=== PATIENT | male | born 1960 | race Caucasian/White ===

== ENCOUNTER 2019-10-15 08:51 | Inpatient (IN) ==
--- NOTE | 2019-09-28 10:19 | PAT Medication Instructions ---
Medication Instructions Date of Service September 28, 2019 Home Medications acetaminophen [Tylenol Extra Strength] 500 mg PO UD PRN finasteride 5 mg PO QAM metoprolol succinate 50 mg PO QAM Take morning of surgery With a small sip of water, OTHERWISE NOTHING TO EAT OR DRINK AFTER MIDNIGHT: acetaminophen [Tylenol Extra Strength] 500 mg PO UD PRN (okay to take up to 4 hours prior to surgery if needed) finasteride 5 mg PO QAM metoprolol succinate 50 mg PO QAM Take evening before surgery acetaminophen [Tylenol Extra Strength] 500 mg PO UD PRN (if needed) Other Notes If you have any questions please call us at [phone] or [phone] or [phone] or [phone]
--- NOTE | 2019-09-29 15:27 | Anesthesiology Consultation ---
Date of Service September 29, 2019 Assessment & Plan (1) Encounter for pre-operative examination: - Awaiting preop labs (being done at [facility]). - Cardiology: 03/16/19: Patient reported episodes of mild chest pressure x1 month chest pain relieved with rest/relaxation. Subsequent exercise stress test on 03/27/2019: No myocardial ischemia or infarction. No cardiopulmonary complaints at subsequent PAT visit 09/29/2019. Chart Review Chart Review: Patient seen in Pre Admission Testing Teaching & Discussion Pre-Anesthesia Teaching/Discussion Notes: Instructed NPO after midnight before surgery,except medications with 15 cc of water. Medication instructions provided according to the PAT guidelines. History Surgery Operation Date: 10/15/19 09:40 Proposed Procedures p Right Robotic Laparoscopic-Assisted Partial Nephrectomy - Rios Flores MD Height/Weight Height: 5 ft 10 in Weight: 113.1 kg Allergies Allergy/AdvReac Type Severity Reaction Status Date / Time adhesive tape Allergy Unknown skin Verified 09/29/19 15:48 "watery" and sloghing alfuzosin Allergy Unknown SOB Verified 09/29/19 15:48 morphine Allergy Unknown Rash, Verified 09/29/19 15:48 elevated HR tamsulosin [From Flomax] AdvReac Unknown Not Verified 09/29/19 15:48 effective Medications Home Medications Medication Instructions Recorded Confirmed Last Taken acetaminophen [Tylenol Extra 500 mg PO UD PRN 09/24/19 09/29/19 Unknown Strength] finasteride 5 mg PO QAM 09/24/19 09/29/19 Unknown metoprolol succinate 50 mg PO QAM 09/24/19 09/29/19 Unknown Past Medical History Medical History BPH loc w urin obs/LUTS CAD (coronary artery disease) mild, non-obstructive per 2011 cardiac cath History of blood transfusion post-op lumbar surgery History of kidney stones Obesity Paroxysmal atrial tachycardia controlled on beta william Right renal mass Sleep apnea CPAP Exercise / Class Metabolic Activity II 4-5 Yardwork/Stairs/Walk up hill Past Family History Family History Mother Family history of diabetes mellitus Past Surgical History Surgical History History of cardiac cath 2011= NO STENTS History of cholecystectomy History of colonoscopy History of hernia surgery X2 History of intestinal surgery bowel obstruction repair History of lumbar fusion Past Anesthesia History No Family Hx of Anesthesia Complications and Other ("slow to wake" ) History of PONV No Hx of PONV and No Hx of Motion Sickness Social History Smoking Status: Never smoker Do You Dip or Chew Tobacco: No (HX OF, QUIT AGE 36) Hx Alcohol Use: Yes (RARE) alcohol intake frequency: holidays/special occasions only Hx Substance Use: No substance use type: does not use Review of Systems Patient denies chest pain, shortness of breath, dyspnea on exertion, reflux, cough, wheezing, palpitations. Physical Exam Vital Signs VITALS BP 136/88 P 59 TEMP 98.3 SP02 97%RA RESP 18 PHYSICAL Full neck and c-spine range of motion. Full TMJ range of motion. TMD 3.5 finger breaths Mallampati Score 2 Dentition: missing left lower side tooth, crown on right lower side Lungs: clear throughout to auscultation Cardiac: regular rate and rhythm, no murmurs noted Spine: normal Carotid arteries: negative bruit Extremities: no edema Testing Laboratory Results Blood Type A Positive 09/29/19 15:40 Antibody Screen NEGATIVE 09/29/19 15:40 Electrocardiogram Date: 03/16/19 SR at 54bpm. Probable inferolateral infarct. Moderate mid and left-precordial repolarization. Moderate inferior repolarization disturbance secondary to infarct. *Subsequent nuclear stress test 03/27/2019* Chest X-Ray Date: 09/29/19 Findings: + NAD Echocardiogram Date: 07/13/16 LVEF 55%. No regional wall motion abnormality. Moderate biatrial enlargement. Mild RVE. Mild concentric LVH. Mild AV sclerosis. Mild TR. Mild MR. Mild PI. Mild aortic insufficiency. Grade 1 diastolic dysfunction. Stress Test Date: 03/27/19 Type: exercise Based upon EKG criteria this test is a negative graded exercise test for ischemia. Based upon the nuclear imaging findings there is no evidence of myocardial ischemia or infarction. 88% MPHR. LVEF 64%. Cardiac Catheterization Date: 01/01/12 EF 60%. LM angiographically normal. LAD, proximal left circumflex, proximal RCA 10 to 30% stenosis. Mild LAD.
--- NOTE | 2019-09-29 15:56 | XRay Report ---
XR chest Pre-admission PA/Lat CLINICAL HISTORY: pat preoperative evaluation COMPARISON STUDY: No previous studies for comparison. FINDINGS: The bones soft tissues and hemidiaphragms are normal. The cardiomediastinal silhouette is n ormal. The lungs are clear. The pulmonary vasculature is normal. IMPRESSION: Negative chest. ACT 112: Negative or not required by law. The above report was generated using voice recognition software. It may contain grammatical, syntax or spelling errors. Electronically signed by: Kasi Almonte M.D. 09/29/2019 3:54 PM
[~2019-10-15 08:51] MED LIST: ACETAMINOPHEN 1,000 MG/100 ML VIAL IV SCH; CEFAZOLIN 3000MG 72.5 ML IV SCH; LR 15ML/HR IV SCH
--- NOTE | 2019-10-15 09:49 | History & Physical Bridge Note ---
Date of Service October 15, 2019 History & Physical Bridge Note I have examined the patient, reviewed the History & Physical and in the interval since the performance of the History & Physical I have noted the following changes of clinical significance: no changes noted
[2019-10-15] MEDS ORDERED: MIDAZOLAM HCL 1 MG/ML 2ML VIAL ONE (10:25)
[2019-10-15] MEDS ORDERED: ONDANSETRON INJ 2 MG/ML 2 ML VIAL ONE ×3 (10:25→16:14)
[2019-10-15] MEDS ORDERED: LIDOCAINE HCL 2% 2 ML VIAL/AMP(20MG/ML) INFIL ONE (10:25)
[2019-10-15] MEDS ORDERED: NEOSTIGMINE METHYLSULFATE 5 MG/5 ML SYR ONE (10:25)
[2019-10-15] MEDS ORDERED: PROPOFOL IV EMULSION 10 MG/ML 20 ML VIAL IV ONE (10:25)
[2019-10-15] MEDS ORDERED: DEXAMETHASONE SOD INJ 4 MG/ML VIAL ONE (10:25)
[2019-10-15] MEDS ORDERED: fentaNYL citrate 100 MCG/2 ML VIAL ONE ×3 (10:25→15:44)
[2019-10-15] MEDS ORDERED: GLYCOPYRROLATE 0.2 MG/ML VIAL ONE (10:25)
[2019-10-15] MEDS ORDERED: ALBUMIN HUMAN 5% 12.5 GM/250 ML VIAL IV ONE (11:00)
[2019-10-15] MEDS ORDERED: BUPIVACAINE 0.5 % 5 MG/1 ML MPF 30ML VIAL ONE (11:17)
[2019-10-15] MEDS ORDERED: ePHEDrine sulfate 50 MG/ML AMP ONE (13:53)
[2019-10-15] MEDS ORDERED: ROCURONIUM BROMIDE 10 MG/ML 5 ML VIAL ONE ×2 (13:53)
[2019-10-15] MEDS ORDERED: LARYING-O-JET KIT (LTA) ONE (13:53)
[2019-10-15] MEDS ORDERED: TISSEEL FIBRIN SEALANT 10ML TOP ONE (15:10)
[2019-10-15] MEDS: FLOSEAL HEMOSTATIC MATRIX 10ML TOP ONE ×2 (15:10→16:01)
[2019-10-15] MEDS ORDERED: SURGICEL ABSORB HEMOSTAT 2IN X 14IN TOP ONE (15:10)
[2019-10-15] MEDS ORDERED: CEFAZOLIN 250 MG/ML 1 GM VIAL ONE (15:21)
--- NOTE | 2019-10-15 16:10 | Operative Report ---
PG Post Operative Report Pre & Post Diagnosis Operation Date: 10/15/19 11:00 Pre-Op Diagnosis: Right Renal Mass Post-Op Diagnosis: Right Adherent Posterior Renal Fat noted, no tumor found I identified the patient and participated in the time-out.: Yes Procedure Operation Date: 10/15/19 11:00 Actual Procedures p Right Robotic Laparoscopic-Assisted excision of perirenal mass(Right) - Rios Flores MD Surgeon Rios Flores MD Document Control Supervisor RONAN Grimaldo DO, GURJIT Hernandez, GURJIT Moody Estimated Blood Loss 100 Findings Consistent with Post-Op Diagnosis Specimens Perirenal fat, R perirenal lesion Description of Procedure See above I attest to the content of the Intraoperative Record and any orders documented therein. Any exceptions are noted below.
[2019-10-15] MEDS ORDERED: HYDROmorphone INJ 1 MG/ML SYRINGE IV PRN ×2 (16:18→17:21)
[2019-10-15] MEDS ORDERED: ATROPINE SULFATE 0.1 MG/ML 10ML SYR IV PRN (16:18)
[2019-10-15] MEDS ORDERED: fentaNYL citrate 100 MCG/2 ML VIAL IV PRN (16:18)
[2019-10-15] MEDS ORDERED: ONDANSETRON INJ 2 MG/ML 2 ML VIAL IV PRN ×2 (16:18→17:21)
[2019-10-15] MEDS ORDERED: PROMETHAZINE HCL 12.5 MG in SODIUM CHLORIDE 0.9% 50 ML IV PRN (16:18)
[2019-10-15] MEDS ORDERED: ePHEDrine sulfate 50 MG/ML AMP IV PRN (16:18)
[2019-10-15 16:41] LABS: Basophils # (auto) 0.02 K/uL (0-0.2); Basophils % (auto) 0.1 %; Eosinophils # (auto) 0.01 K/uL (0-0.5); Eosinophils % (auto) 0.1 %; Hematocrit (blood only) 44.5 % (42-52); Hemoglobin 15.6 g/dL (14.0-18.0); Immature Granulocytes # (auto) 0.04 K/uL (0.00-0.02); Immature Granulocytes % (auto) 0.3 %; Lymphocytes # (auto) 0.87 K/uL (1.2-3.4); Mean Corpuscular Volume 91.4 fL (80-100); Monocytes # (auto) 0.35 K/uL (0.11-0.59); Monocytes % (auto) 2.4 %; Neutrophils # (auto) 13.12 K/uL (1.4-6.5); Neutrophils % (auto) 91.1 %; Platelet Count 207 K/uL (130-400); RDW Coefficient of Variation 13.1 % (11.5-14.5); RDW Standard Deviation 43.2 fL (36.4-46.3); Red Blood Count 4.87 M/uL (4.7-6.1); White Blood Count 14.41 K/uL (4.8-10.8)
[2019-10-15 16:44] LABS: Mean Corpuscular Hgb Conc 35.1 g/dL (32-36)
--- NOTE | 2019-10-15 16:48 | Anesthesiology Progress Note ---
Date of Service October 15, 2019 Anesthesia Post Procedure Vital Signs Vital Signs: Temp Pulse Pulse Resp BP Pulse Ox 10/15/19 16:40 74 13 123/70 95 10/15/19 16:30 97 H 14 118/60 97 10/15/19 16:20 76 18 113/65 97 10/15/19 16:14 36.8 C 79 13 121/69 98 10/15/19 09:19 36.5 C 65 18 131/78 97 Transfer of Care Handoff Completed per policy Notes Mental Status: alert / awake / arousable and participated in evaluation Patient Amnestic to Procedure: Yes Nausea / Vomiting: adequately controlled Pain: adequately controlled Airway Patency, RR, SpO2: stable & adequate BP & HR: stable & adequate Hydration State: stable & adequate Anesthetic Complications: no major complications apparent and Pt Satisfied with anesthetic care
[2019-10-15 17:03] LABS: BUN Creatinine Ratio 12.1 (10-20); Calcium 8.5 mg/dl (8.5-10.1); Creatinine Clr Calc Pharmacy 73.6 ml/min; Potassium 4.3 mmol/L (3.5-5.1)
[2019-10-15] MEDS ORDERED: OXYCODONE HCL IR 5 MG TAB (IMMEDIATE RELEASE) PO PRN (17:21)
[2019-10-15] MEDS ORDERED: HYDROmorphone INJ 0.5 MG/0.5 ML SYR IV PRN (17:42)
--- NOTE | 2019-10-15 17:47 | Operative Report ---
PG Post Operative Report Pre & Post Diagnosis Operation Date: 10/15/19 11:00 Pre-Op Diagnosis: Right enlarging renal Mass Post-Op Diagnosis: Right posterior adherent and inflamed perirenal fat, no renal mass found. Anesthesia: General anesthesia with endotracheal ablation plus local at port sites. Drains left in place: 16 Eston[place] Shahid catheter to gravity drainage with 10 cc of sterile water in the balloon. Complications: None. Specimen sent to pathology: Perirenal fat, perirenal lesion. Findings: Exophytic renal lesion noted on MRI imaging not found on visual inspection or intraoperative ultrasound displayed exposure of kidney. Area of adherent, inflammatory and vascular fat at the corresponding site in situ excised and sent for pathologic analysis. Excellent hemostasis. Assistants present in case for retraction, suction, suture and instrument passag e, placement of clips, bagging and removal of specimens, exposure of tissues, patient positioning and general patient safety. I identified the patient and participated in the time-out.: Yes Procedure Operation Date: 10/15/19 11:00 Actual Procedures p Right Robotic Laparoscopic-Assisted excision of perirenal mass(Right) - Rios Flores MD Brief history: Patient is a pleasant 59-year-old male with a history of a right renal mass discovered over 6 months ago who proceeded with observation due to small size. On repeat MRI the lesion, felt to be suspicious for renal cell carcinoma was found to be enhancing close to 4 cm in size. Observation was no longer felt to be appropriate and after discussion of risks and benefits of various forms of intervention a robot-assisted laparoscopic partial nephrectomy was planned. Please see H&P for further details. Intravenous Ancef is provided for antibiotic coverage and SCDs used for DVT prophylaxis. Intravenous Tylenol is also provided for perioperative analgesia. Procedure: Patient was properly identified and brought into the operative suite after identification of appropriate consent in the chart. General anesthesia with endotracheal ablation was initiated and patient was prepped and draped in the standard fashion for this procedure. Full timeout procedure was followed. Shahid catheter was placed at the beginning of the case. 12 mm incision was made and abdomen was entered using a visual obturator and a 0 degree laparoscope. This was uneventful and without injury on careful inspection. Abdomen was insufflated to 15 mmHg and ports were placed including 2 8 mm robotic ports and 2 12 mm head start assistant teacher ports. Minimal intra-abdominal adhesions were appreciated despite the patient's prior surgical history. 30 degree down lens was used to free the lateral aspect of the colon along the white line of Toldt. Liver was noted to be well out of the surgical field. Patient was noted to have a superior appendix approaching the lower pole of the kidney but this was able to be freed along with the colon and brought medially out of the surgical field. Retroperitoneal dissection was continued until the gonadal vein and duodenum were visualized. Careful kocherization of the duodenum was performed using cold scissors. Ureter and gonadal vein were mobilized laterally until the psoas muscle was identified. This plane was used to place lateral traction on the kidney. An accessory arterial vessel associated with the gonadal vein was spared. Inferior vena cava was identified and this plane was used to dissect superiorly until the hilum of the kidney was encountered. A single renal artery and vein were visualized consistent with the patient's MRI imaging. These were circumscribed to allow for clamp control at the time of planned renal ischemia. Excellent hemostasis in the area was noted. After this was complete intraoperative ultrasound was brought in and used to identify the lower pole of the kidney. All the patient's renal cysts noted on MRI imaging were identified his renal mass was not clearly seen. However, an abundance of perirenal fat was felt to be the main issue at this time. After ultrasound was used to identify the location of the kidney the perirenal fat was sharply entered and dissection was carried down to the capsule of the kidney. It was quickly appreciated that the patient had significant inflammatory, sticky fat around the kidney adherent to this capsule circumferentially. This required slow progression to avoid significant capsulotomies while cleaning the kidney. A large wad of anterior fat was removed to allow for easier manipulation of the kidney itself. Dissection was carried around the lower pole of the kidney and the posterior surface of the kidney was approached where the tumor was expected. A first renal cyst was encountered and inadvertently entered using sharp scissors due to adherence of the fat. This was appreciated to be the lowermost cyst on the kidney which on MRI imaging shared a superior wall with the patient's tumor. However, on careful dissection only bleeding, inflammatory fat was present superior to the cyst. It was felt to be likely that the tumor was within this fat and therefore it was widely circumscribed with the remainder of the posterior and anterior aspect of the kidney being dissected free. Repeated intraoperative ultrasound failed to demonstrate a clear exophytic tumor as appreciated on MRI. Remaining renal structures including the patient's cysts were appreciated throughout the case on imaging. Eventually the superior pole cyst was encountered and it was felt to be likely that the tumor was buried within the fat between these 2 cystic areas as suggested by MRI. Careful dissection following the plane of the renal cortex was undertaken in the area of inflammatory fat felt to be containing the tumor. However, and no point was any tumor visibly traversed and this dissection was able to be carried out with removal of this abnormal fat within the confines of the patient's hostile perirenal fat. This fat was sent separately as perirenal lesion. After this was removed and the kidney was meticulously reinspected circumferentially both visually and with intraoperative ultrasound without evidence of what on MRI was a rather obvious 3.8 cm exophytic renal mass. The abnormal fat corresponded to the location of the presumed tumor on MRI. Both the excised perirenal fat and the fat from the specific area were placed within an Endo Catch bag through the lowermost 12 mm port leaving the string through the port. Decision was made to avoid nephrectomy seen the lack of identifiable tumor at this time. The capsule was covered with Tisseel tissue sealant seen the difficulty of dissection. Remaining Gerota's fascia was reapproximated as best possible using V lock sutures with Weck clip pledgets. Excellent hemostasis at the level of the hilum was appreciated. No drains were left in place. Robotic instruments were removed and the inferior 12 mm port was enlarged sufficiently to allow for easy removal of the specimen bag. Excess carbon oxide gas was removed from the abdomen. Fascia at the level of the inferior port was closed using 0 Vicryl suture on a UR 5 needle. Subcutaneous tissues were irrigated and closed using a 3-0 Vicryl suture. Fascia at the level of the remaining ports was closed using 0 Vicryl suture on a UR 6 needle. Skin incisions were closed using 4-0 Monocryl and Dermabond dressing. Anesthesia was reversed and patient was transferred to the recovery room in stable condition. Follow-up CARE: Patient will be admitted to the floor for standard postoperative management. Intraoperative findings are reviewed with the patient immediately postoperatively and with the patient himself in evening rounds. Surgeon Rios Flores MD Hand Counter RONAN Grimaldo DO, A Guillard, CRNP, GURJIT Moody Estimated Blood Loss 100 Findings Consistent with Post-Op Diagnosis Specimens Perirenal fat, perirenal lesion. Description of Procedure Robot-assisted laparoscopic excision of right perirenal lesion. I attest to the content of the Intraoperative Record and any orders documented therein. Any exceptions are noted below.
[2019-10-15] MEDS: ACETAMINOPHEN 1,000 MG/100 ML VIAL IV SCH (18:26)
[2019-10-15] MEDS: CEFAZOLIN 2000MG 2,000 MG/15 ML SYR IV SCH (20:31)
[2019-10-15] MEDS: HEPARIN SOD 5,000 UNIT/0.5 ML VIAL SQ SCH (22:08)
[2019-10-15] MEDS: LACTATED RINGER'S 1,000 ML IV SCH (22:11)
[2019-10-16] MEDS: ACETAMINOPHEN 1,000 MG/100 ML VIAL IV SCH ×2 (01:04→09:06)
[2019-10-16] MEDS: CEFAZOLIN 2000MG 2,000 MG/15 ML SYR IV SCH (04:11)
[2019-10-16] MEDS: LACTATED RINGER'S 1,000 ML IV SCH ×2 (04:11→08:16)
[2019-10-16 06:05] LABS: Basophils # (auto) 0.01 K/uL (0-0.2); Basophils % (auto) 0.1 %; Hematocrit (blood only) 40.6 % (42-52); Hemoglobin 13.9 g/dL (14.0-18.0); Immature Granulocytes # (auto) 0.02 K/uL (0.00-0.02); Immature Granulocytes % (auto) 0.2 %; Lymphocytes % (auto) 7.3 %; Mean Corpuscular Hemoglobin 31.4 pg (25-34); Mean Corpuscular Hgb Conc 34.2 g/dL (32-36); Mean Corpuscular Volume 91.9 fL (80-100); Mean Platelet Volume 11.2 fL (7.4-10.4); Monocytes # (auto) 1.34 K/uL (0.11-0.59); Monocytes % (auto) 10.8 %; Neutrophils # (auto) 10.12 K/uL (1.4-6.5); Neutrophils % (auto) 81.6 %; Platelet Count 186 K/uL (130-400); RDW Standard Deviation 43.5 fL (36.4-46.3); Red Blood Count 4.42 M/uL (4.7-6.1); White Blood Count 12.39 K/uL (4.8-10.8)
[2019-10-16 06:36] LABS: BUN Creatinine Ratio 16.3 (10-20); Calcium 8.5 mg/dl (8.5-10.1); Creatinine Clr Calc Pharmacy 88.6 ml/min; Est GFR (African American) 82.6; Est GFR (Non-African American) 71.3; Potassium 4.2 mmol/L (3.5-5.1)
--- NOTE | 2019-10-16 07:00 | Urology Progress Note ---
Date of Service October 16, 2019 Assessment & Plan (1) Renal mass, right: A/P 59 yo male POD#1 s/p excision of R perirenal lesion. Unusual intraop findings reviewed with patient again. Will await pathology and future imaging, likely MRI in 3 months' time. Advance diet and activity today, DC morales. DISABILITY RATER will check later today - possible DC home later today vs tomorrow depending on pain control, activity and diet tolerance. Patient vocalizes good understanding of the plan. Subjective 59 yo male POD#1 s/p excision of R perirenal lesion, no tumor found. Intraop findings reviewed. Patient notes he was OOBTC yesterday, taking clears with good appetite. Pain controlled, no other specific c/o. Review of Systems Constitutional: no fever and no chills Eyes: no diplopia Ear, Nose, Mouth, Throat: no ear trauma Respiratory: no hemoptysis Cardiovascular: no chest pain Gastrointestinal: + abdominal pain (controlled) Musculoskeletal: no neck pain Integumentary: no acne and no boil Neurologic: no paralysis Psychiatric: no hopelessness Allergy / Immunological: no tongue swelling Physical Exam Constitutional: well developed and well nourished; no acute distress Eyes: eyes not dysmorphic ENMT: Ears: no external ear abnormality Neck: trachea midline; no anterior neck swelling Respiratory: no respiratory distress and does not use accessory muscles Cardiovascular: Vessels: radial pulses present Gastrointestinal (Abdomen): Inspection/Auscultation: abdomen not distended Percussion/Palpation: + abdomen tender (minimal) and abdomen soft serosanguinous drainage from extraction port, no s/s infection Musculoskeletal: Head/Neck/Chest: normocephalic and neck supple Skin: normal turgor Neurologic: awake; not obtunded Psychiatric: Orientation: oriented x 3 Lymphatic: no lymphadenopathy Results & Data Vital Signs (Past 12 Hours) Vital Signs Temp Pulse Resp BP BP Pulse Ox 10/16/19 04:00 36.8 C 63 18 104/64 96 10/15/19 23:10 36.6 C 68 18 109/66 96 10/15/19 20:12 36.8 C 75 16 111/64 95 10/15/19 19:17 36.8 C 82 16 117/68 97 Laboratory Results Laboratory Results - last 48 hr 10/15/19 10/15/19 10/15/19 09:10 09:10 16:28 WBC 14.41 H RBC 4.87 Hgb 15.6 Hct 44.5 MCV 91.4 MCH 32.0 MCHC 35.1 RDW Std Deviation 43.2 RDW Coeff of Joann 13.1 Plt Count 207 MPV 11.0 H Immature Gran % (Auto) 0.3 Neut % (Auto) 91.1 Lymph % (Auto) 6.0 Parker % (Auto) 2.4 Eos % (Auto) 0.1 Baso % (Auto) 0.1 Immature Gran # (Auto) 0.04 H Neut # (Auto) 13.12 H Lymph # (Auto) 0.87 L Parker # (Auto) 0.35 Eos # (Auto) 0.01 Baso # (Auto) 0.02 Sodium Potassium Chloride Carbon Dioxide Anion Gap BUN Creatinine Est Cr Clr Drug Dosing Est GFR ( Amer) Est GFR (Non-Af Amer) BUN/Creatinine Ratio Glucose Calcium Specimen Hemolysis Hepatitis C Ab Screen Neg Blood Type A Positive Antibody Screen NEGATIVE 10/15/19 10/16/19 10/16/19 16:28 05:28 05:28 WBC 12.39 H RBC 4.42 L Hgb 13.9 L Hct 40.6 L MCV 91.9 MCH 31.4 MCHC 34.2 RDW Std Deviation 43.5 RDW Coeff of Joann 13.0 Plt Count 186 MPV 11.2 H Immature Gran % (Auto) 0.2 Neut % (Auto) 81.6 Lymph % (Auto) 7.3 Parker % (Auto) 10.8 Eos % (Auto) 0.0 Baso % (Auto) 0.1 Immature Gran # (Auto) 0.02 Neut # (Auto) 10.12 H Lymph # (Auto) 0.90 L Parker # (Auto) 1.34 H Eos # (Auto) 0.00 Baso # (Auto) 0.01 Sodium 140 139 Potassium 4.3 4.2 Chloride 110 H 108 H Carbon Dioxide 23 26 Anion Gap 7.0 5.0 BUN 16 18 Creatinine 1.36 1.13 Est Cr Clr Drug Dosing 73.6 88.6 Est GFR ( Amer) 66.0 82.6 Est GFR (Non-Af Amer) 57.0 71.3 BUN/Creatinine Ratio 12.1 16.3 Glucose 144 H 123 H Calcium 8.5 8.5 Specimen Hemolysis Hepatitis C Ab Screen Blood Type Antibody Screen PG Care Time/CCT Total # of Minutes Spent Total Time Spent with Patient: Total time spent is greater than 50% in coordination of care (as documented) at patient's floor/unit and/or counseling patient: Coding Level of Care Code 62892 Subseq Hosp Care Lvl 2 Diagnoses Renal mass, right N28.89
--- NOTE | 2019-10-16 08:08 | Anesthesiology Progress Note ---
Date of Service October 16, 2019 Anesthesia Post Procedure Vital Signs Vital Signs: Temp Pulse Pulse Resp BP BP Pulse Ox 10/16/19 07:05 36.8 C 64 19 114/70 96 10/16/19 04:00 36.8 C 63 18 104/64 96 10/15/19 23:10 36.6 C 68 18 109/66 96 10/15/19 20:12 36.8 C 75 16 111/64 95 10/15/19 19:17 36.8 C 82 16 117/68 97 10/15/19 18:15 36.8 C 80 16 124/76 99 10/15/19 17:44 36.5 C 85 16 117/72 98 10/15/19 17:16 36.9 C 69 16 111/71 97 10/15/19 17:00 66 17 114/55 L 97 10/15/19 16:50 36.0 C L 69 19 119/66 98 10/15/19 16:40 74 13 123/70 95 10/15/19 16:30 97 H 14 118/60 97 10/15/19 16:20 76 18 113/65 97 10/15/19 16:14 36.8 C 79 13 121/69 98 10/15/19 09:19 36.5 C 65 18 131/78 97 Pain Intensity Abdomen: Pain Intensity: 4 Notes Mental Status: alert / awake / arousable Patient Amnestic to Procedure: Yes Nausea / Vomiting: adequately controlled Pain: adequately controlled and improving with treatment Airway Patency, RR, SpO2: stable & adequate BP & HR: stable & adequate Hydration State: stable & adequate Anesthetic Complications: no major complications apparent and Pt Satisfied with anesthetic care
[2019-10-16] MEDS ORDERED: METOPROLOL SUCC 50MG EXT REL TAB PO SCH (09:00)
[2019-10-16] MEDS ORDERED: FINASTERIDE 5 MG TAB PO SCH (09:00)
[2019-10-16] MEDS: HEPARIN SOD 5,000 UNIT/0.5 ML VIAL SQ SCH (09:10)
[2019-10-16] MEDS: OXYCODONE HCL IR 5 MG TAB (IMMEDIATE RELEASE) PO PRN ×2 (13:42→17:35)
== END 2019-10-16 17:55 | disposition home or self-care (01) | DRG 660 ==
LOC: ASU 08:51 → 3N 16:12